=== PATIENT | male | born 1945 | race Caucasian/White ===

== ENCOUNTER 2019-05-05 14:42 | Emergency (ER) | payer MEDICARE ==
[~2019-05-05] VITALS: Ht 170.2 cm; Wt 71.4 kg
--- NOTE | 2019-05-05 16:00 | REP ---
CT HEAD WITHOUT CONTRAST: HISTORY: Trauma. There is no intraparenchymal hemorrhage, mass, or midline shift. The ventricular system and cortical sulci are dilated consistent with minimal volume loss. A 3.8 cm arachnoid cyst is present in the right middle cranial fossa. There is no extra-axial subdural fluid collection. There is no fracture. Mucosal thickening is present in the ethmoid sinuses. IMPRESSION: 1. Minimal volume loss. 2. There is a 3.8 cm arachnoid cyst in the right middle cranial fossa. Electronically Signed by Joe Yen MD 05/05/2019 04:04 P
--- NOTE | 2019-05-05 16:07 | REP ---
MAXILLOFACIAL CT WITH CONTRAST: HISTORY: Trauma. Minimal mucosal thickening is present in the ethmoid, maxillary and frontal sinuses. The sphenoid sinuses are clear. Mucosal thickening involves the osteomeatal units. The middle and inferior nasal turbinates are partially paradoxical. There is mild deviation of the nasal septum to the right. The nasal septum abuts the right inferior nasal turbinate. A spur is present arising from the left side of the nasal septum. The spur abuts the left inferior nasal turbinate. The cribriform plate, medial deshpande of the orbits and optic canals are intact. There is aeration of the right anterior clinoid process. The carotid canals form a segment of the posterolateral deshpande of the sphenoid sinus. There is no fracture. Soft tissue swelling is present over the nasal bones. Calcifications are present in the tonsils. This is secondary to previous inflammatory disease. IMPRESSION: Sinus mucosal thickening as described above. Electronically Signed by Joe Yen MD 05/05/2019 04:12 P
--- NOTE | 2019-05-05 16:09 | REP ---
CT CERVICAL SPINE WITHOUT CONTRAST: HISTORY: Trauma. There is no acute fracture or subluxation. Disc bulges with associated osteophyte formation are present at the C3-4 through C6-7 levels. There is minimal narrowing of the spinal canal. Uncinate process and or facet hypertrophy are present at the C2-3 through C6-7 levels. These findings produce minimal to moderate narrowing of the neural foramina. C3-4 through C6-7 intervertebral discs are decreased in height consistent with disc degeneration. IMPRESSION: 1. There is no acute fracture or subluxation. 2. There is cervical spondylosis at the C2-3 through C6-7 levels. Electronically Signed by Joe Yen MD 05/05/2019 04:13 P
[2019-05-05] MEDS ORDERED: ADACEL/BOOSTRIX VACCINE (DIPHTH/PERTUSS/ACELL/TETANUS)0.5ML SYR (90715) IM ONE (16:15)
[2019-05-05 17:04] VITALS: BP 176/86
--- NOTE | 2019-05-06 12:30 | ED PDOC ---
Post-Departure Follow-Up elham haas faxed formal report of ct head for fu Mercedes Vela MD May 06, 2019 12:30
== END 2019-05-05 17:50 | disposition home or self-care (01) ==
LOC: EDBD 14:42 → M ED 14:42
DX: S01.511A Laceration without foreign body of lip, initial encounter (principal); W01.0XXA Fall on same level from slipping, tripping and stumbling without subsequent striking against object, initial encounter; Y92.89 Other specified places as the place of occurrence of the external cause